=== PATIENT | female | born 1970 | race African-American/Black ===

== ENCOUNTER 2020-04-26 15:18 | Outpatient (CLI) | payer OTHER | END 2020-04-26 15:19 | disposition critical access hospital (66) | LOC: EMS 15:18 | PROVIDERS: ATTEND Emergency Medicine | DX: R11.0 Nausea (principal); R10.9 Unspecified abdominal pain; R42 Dizziness and giddiness | CPT/HCPCS: A0425; A0427 ==

== ENCOUNTER 2020-04-26 15:37 | Emergency (ER) | payer OTHER ==
[2020-04-26 15:51] VITALS: BP 114/72
--- NOTE | 2020-04-26 15:53 | ED Physician Documentation ---
PD HPI BACK PAIN - Stated complaint Stated Complaint: L FLANK PX - History obtained from History obtained from: Patient - History of Present Illness Timing - onset: Today Timing - duration: Minutes Timing - details: Abrupt onset, Still present Location: Mid, Left Quality: Pain, Spasm, Sharp Associated symptoms: No: Fever, Weakness, Numbness, Incontinent of urine, Unable to urinate, Hematuria, Incontinent of stool Improves with: Meds Worsened by: No: Movement, Lifting, Twisting, Palpation Similar symptoms before: Has not had sx before Recently seen: Not recently seen - Additional information Additional information: 50 y/o female visiting for a new grand baby was up in the kitchen cooking when she began to get a pain in her left side. She though she had to go to the [facility] but nothing happened and the pain worsened. She called 911 and she has had some relief with the use of IM fentanyl. She did not have modifying factors for the pain. She has not had this pain previously and she has not been ill recently Review of Systems Constitutional: denies: Fever Eyes: denies: Decreased vision Ears: denies: Ear pain Nose: denies: Rhinorrhea / runny nose, Congestion Throat: denies: Sore throat Cardiac: denies: Chest pain / pressure, Palpitations Respiratory: denies: Dyspnea, Cough GI: reports: Abdominal Pain, Nausea. denies: Vomiting, Constipation, Diarrhea : denies: Dysuria, Frequency Skin: denies: Rash, Lesions Musculoskeletal: reports: Back pain. denies: Neck pain, Extremity pain Neurologic: denies: Generalized weakness, Focal weakness, Numbness PD PAST MEDICAL HISTORY - Present Medications Home Medications: Ambulatory Orders Medication Instructions Recorded Confirmed Spironolactone [Aldactone] 25 mg PO 04/26/20 - Allergies Allergies/Adverse Reactions: Allergies Allergy/AdvReac Type Severity Reaction Status Date / Time No Known Drug Allergies Allergy Verified 04/26/20 15:52 PD ED PE NORMAL - Vitals Vital signs reviewed: Yes - General General: Alert and oriented X 3, No acute distress, Well developed/nourished - HEENT HEENT: Atraumatic, PERRL, EOMI - Neck Neck: Supple, no meningeal sign, No bony TTP - Cardiac Cardiac: RRR, No murmur - Respiratory Respiratory: No respiratory distress, Clear bilaterally - Abdomen Abdomen: Normal bowel sounds, Soft, Non distended, No organomegaly, Other (mild LUQ tenderness ) - Back Back: No spinal TTP, Other (tenderness to bimanual palpation of the left kidney is mild ) - Derm Derm: Normal color, Warm and dry, No rash - Extremities Extremities: No deformity, No edema - Neuro Neuro: Alert and oriented X 3, 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, No motor deficit, No sensory deficit, Normal speech Eye Opening: Spontaneous Motor: Obeys Commands Verbal: Oriented GCS Score: 15 - Psych Psych: Normal mood, Normal affect Results - Vitals Vitals: Vital Signs - 24 hr 04/26/20 15:47 Temperature 36.6 C Heart Rate 71 Respiratory 18 Rate Blood Pressure 114/72 O2 Saturation 99 Oxygen O2 Source Room air - Labs Labs: Laboratory Tests 04/26/20 04/26/20 04/26/20 15:55 16:00 16:00 WBC 16.1 H RBC 4.11 L Hgb 12.7 Hct 38.9 MCV 94.6 MCH 30.9 MCHC 32.6 RDW 12.9 Plt Count 248 MPV 9.4 Neut # (Auto) 13.1 H Lymph # (Auto) 1.8 [place] # (Auto) 0.9 Eos # (Auto) 0.2 Baso # (Auto) 0.1 Absolute Nucleated RBC 0.00 Nucleated RBC % 0.0 Sodium 136 Potassium 3.9 Chloride 102 Carbon Dioxide 23 Anion Gap 11.0 BUN 18 Creatinine 0.7 Estimated GFR (MDRD) 107 Glucose 91 Calcium 9.4 Total Bilirubin 0.7 AST 18 ALT 17 Alkaline Phosphatase 58 Total Protein 7.8 Albumin 4.2 Globulin 3.6 Albumin/Globulin Ratio 1.2 Lipase 24 Urine Color YELLOW Urine Clarity CLEAR Urine pH 5.5 Ur Specific [place] >=1.030 H Urine Protein 30 H Urine Glucose (UA) NEGATIVE Urine Ketones TRACE Urine Occult Blood NEGATIVE Urine Nitrite NEGATIVE Urine Bilirubin NEGATIVE Urine Urobilinogen 0.2 (NORMAL) Ur Leukocyte Esterase NEGATIVE Urine RBC 0-5 Urine WBC 0-3 Ur Squamous Epith Cells FEW Squamous Amorphous Sediment Rare Urine Bacteria Rare Urine Mucus Few Strands Ur Microscopic Review INDICATED Urine Culture Comments NOT INDICATED Urine HCG, Qual NEGATIVE - Rads (name of study) CT ab/pel without Radiology: Prelim report reviewed (Impression: 1 No hydronephrosis. 2 mm nonobstructive stone in the right kidney.2There are tiny punctate calcifications in the renal medulla bilaterally suggesting mild medullary calcinosis.3Moderate amount of stool in the colon.4 Skin thickening in the area of the umbilicus. Please correlate with ), EMP read indepedently, See rad report Procedures - Bedside sono Bedside sono by EMP: with the use of bedside ultrasound the left kidney is imaged and there is mild hydro and the kidney itself is sonographically non-tender. PD MEDICAL DECISION MAKING - ED course Complexity details: reviewed results, re-evaluated patient, considered differential, d/w patient ED course: 50 y/o female with acute non-modifiable left flank pain has improvement in the pain with fentanyl IM and she arrives with 3/10 pain persistent and there is evidence of mild hydro on bedside and a CT ab/pel is obtained. An IV is begun and she is given saline. Her pain resolves and does not return. Her diagnostic studies are otherwise unremarkable with the exception of a fair stool burden mostly on the right side. She could have passed a stone or she could just be constipated with stool moving. She has no pain now. Departure - Departure Disposition: 01 Home, Self Care Clinical Impression: Acute flank pain Constipation Qualifiers: Constipation type: unspecified constipation type Qualified Code(s): K59.00 - Constipation, unspecified Condition: Stable Instructions: ED Flank Pain Uncertain Cause, ED Constipation Follow-Up: Your, doctor [Other]
[2020-04-26] MEDS ORDERED: SODIUM CHLORIDE 0.9% 1,000 ML IV STA (15:58)
[2020-04-26 16:07] LABS: BASOPHILS # (AUTO) 0.1 10^3/uL (0.0-0.1); BASOPHILS % (AUTO) 0.4 %; EOSINOPHILS # (AUTO) 0.2 10^3/uL (0.0-0.7); EOSINOPHILS % (AUTO) 1.4 %; HGB - HEMOGLOBIN 12.7 g/dL (12.0-16.0); LYMPHOCYTES # (AUTO) 1.8 10^3/uL (1.5-3.5); LYMPHOCYTES % (AUTO) 11.2 %; MEAN CORPUSCULAR HEMOGLOBIN 30.9 pg (27.0-31.0); MEAN CORPUSCULAR HGB CONC 32.6 g/dL (32.0-36.0); MEAN CORPUSCULAR VOLUME 94.6 fL (81.0-99.0); MEAN PLATELET VOLUME 9.4 fL (7.9-10.8); MONOCYTES # (AUTO) 0.9 10^3/uL (0.0-1.0); MONOCYTES % (AUTO) 5.6 %; NEUTROPHILS # (AUTO) 13.1 10^3/uL (1.5-6.6); PLT - PLATELET COUNT 248 10^3/uL (130-450); RED BLOOD COUNT 4.11 10^6/uL (4.20-5.40); RED CELL DISTRIBUTION WIDTH 12.9 % (12.0-15.0); WHITE BLOOD COUNT 16.1 x10^3/uL (4.8-10.8)
[2020-04-26 16:09] LABS: BILIRUBIN,URINE NEGATIVE (NEGATIVE); GLUCOSE, URINE (UA) NEGATIVE (NEGATIVE); KETONES,URINE (UA) TRACE mg/dL (NEGATIVE); LEUKOCYTE ESTERASE, URINE NEGATIVE (NEGATIVE); NITRITE,URINE NEGATIVE (NEGATIVE); OCCULT BLOOD,URINE NEGATIVE (NEGATIVE); PH,URINE 5.5 PH (5.0-7.5); PROTEIN,URINE 30 mg/dL (NEGATIVE); UROBILINOGEN,URINE 0.2 (NORMAL) E.U./dL (NORMAL)
[2020-04-26 16:10] LABS: CLARITY,URINE CLEAR (CLEAR); HCG UR QUAL NEGATIVE
[2020-04-26 16:11] LABS: AMORPHOUS SEDIMENT,UR Rare /LPF; BACTERIA,URINE Rare /HPF (None Seen); MUCUS,URINE Few Strands; RBC,URINE 0-5 /HPF (0-5); SQUAMOUS EPITHELIAL CELL,UR FEW Squamous (<= Few)
[2020-04-26 16:27] LABS: ALBUMIN 4.2 g/dL (3.2-5.5); ALBUMIN/GLOBULIN RATIO 1.2 (1.0-2.2); BILIRUBIN,TOTAL 0.7 mg/dL (0.2-1.0); CALCIUM 9.4 mg/dL (8.5-10.3); CREATININE 0.7 mg/dL (0.4-1.0); TOTAL PROTEIN 7.8 g/dL (6.7-8.2)
--- NOTE | 2020-04-26 16:45 | CT Report ---
PROCEDURE: Abdomen/Pelvis WO INDICATIONS: left flank pain TECHNIQUE: Noncontrast 5 mm thick sections acquired from the diaphragms to the symphysis. 5 mm coronal and sagi ttal reformats were then performed. For radiation dose reduction, the following was used: automated exposure control, adjustment of mA and/or kV according to patient size. COMPARISON: None. FINDINGS: Image quality: Excellent. ABDOMEN: Lung bases: Lung bases are clear. Heart size is normal. Solid organs: Liver and spleen are normal in size. Gallbladder is normal. Pancreas is normal in co ntours. No adrenal nodules. Kidneys are normal in size, without hydronephrosis. There is a 2 mm non obstructive stone in the right kidney. Tiny punctate calcifications are seen in the renal medulla verónica aterally. Peritoneum and bowel: Unenhanced bowel loops demonstrate normal wall thickness and caliber. No free fluid or air. Nodes and vessels: No retroperitoneal or mesenteric adenopathy by size criteria. Aorta and inferior vena cava are normal in caliber. Miscellaneous: There is skin thickening in the area of umbilicus. PELVIS: Genitourinary: Uterus and ovaries are grossly normal. No pathological free fluid in the cul-de-sac. Bladder wall is contracted, therefore, not well seen. Miscellaneous: No inguinal hernias. Borderline sized inguinal lymph nodes bilaterally measuring up t o 1.1 cm, most likely reactive. Bones: No suspicious bony lesions. No vertebral body compression fractures. IMPRESSION: 1. No hydronephrosis. 2. A 2 mm nonobstructive stone in right kidney. There are tiny punctate calcifications in the renal m edulla bilaterally, suggesting mild medullary calcinosis. 3. Moderate amount stool in colon. 4. Skin thickening in the area of umbilicus. Please correlate with findings on physical diagnosis. Reviewed by: Rosemary Cervantes MD on 04/26/2020 4:44 PM PST Approved by: Rosemary Cervantes MD on 04/26/2020 4:44 PM PST Station ID: [id number]
== END 2020-04-26 17:23 | disposition home or self-care (01) ==
LOC: ED 15:37
DX: R10.12 Left upper quadrant pain (principal); K59.00 Constipation, unspecified; N20.0 Calculus of kidney
CPT/HCPCS: 36415; 80053; 81001; 81003; 81025; 83690; 85025; 87086; 99284